=== PATIENT | male | born 1970 | race Caucasian/White ===

== ENCOUNTER → 2018-04-19 | Outpatient (CLI) | payer BC ==
--- NOTE | 2018-04-19 09:21 | Diagnostic Imaging Report ---
TECHNIQUE: Magnetic resonance imaging of the LEFT ANKLE was performed WITHOUT injected contrast. HISTORY: Pain, lateral side, surgery 2 years ago COMPARISON: None available. FINDINGS: LIGAMENTS: Medial Complex: Intact Lateral Complex: Intact, including the tibiofibular ligaments. TENDONS: Medial: Intact Lateral: Attenuation of one of the peroneal tendons at the level of the lateral malleolus, presumably the peroneus brevis tendon given that the distal portion is not visualized. The peroneus longus tendon appears intact. Small volume of fluid adjacent to the peroneal tendons at the level of the lateral malleolus. Anterior: Intact Achilles: Mild thickening and intrasubstance degeneration. BONES: No focal or infiltrative bone marrow replacing abnormality. No acute fracture or osteonecrosis. Focal susceptibility artifact at the lateral aspect of the anterior calcaneus, adjacent to the expected location of the peroneal tendons. JOINTS: Cartilage: Full-thickness fissuring at the anterior tibial plafond and with adjacent minimal subchondral bone marrow edema. Other: Fluid within the joints is within physiologic limits. SOFT TISSUES: Trace fluid within the retrocalcaneal bursa. IMPRESSION: 1. Susceptibility artifact at the lateral aspect of the anterior calcaneus and marked attenuation versus absence of the distal peroneal brevis tendon, correlate with specific surgical history. 2. Mild peroneal tenosynovitis. 3. Mild Achilles tendinosis. 4. Mild tibiotalar osteoarthrosis. 5. Minimal retrocalcaneal bursitis. Signed by: Dr. Kevin Kitchen D.O., M.M.M. on 04/19/2018 9:18 AM
== END ==
LOC: MRI 07:33
PROVIDERS: ATTEND Specialist
DX: M25.572 Pain in left ankle and joints of left foot (principal)